=== PATIENT | male | born 1970 | race Two or more races ===

== ENCOUNTER 2019-03-24 04:33 | Emergency (ER) | payer SELFPAY ==
[~2019-03-24] VITALS: Ht 170.2 cm; Wt 100.0 kg
[2019-03-24] MEDS ORDERED: AMLO1TAB13 PO (04:50)
[2019-03-24 04:53] LABS: GLUCOSE,POINT OF CARE 108 MG/DL (70-110)
[2019-03-24 04:59] VITALS: BP 135/83
== END 2019-03-24 06:31 | disposition left against medical advice (07) ==
LOC: EMS 04:33
DX: F41.9 Anxiety disorder, unspecified (principal); I10 Essential (primary) hypertension; Z79.899 Other long term (current) drug therapy